=== PATIENT | female | born 2000 | race Caucasian/White ===

== ENCOUNTER 2021-04-27 17:03 | Outpatient (CLI) | payer OTHER, SELFPAY ==
--- NOTE | ~2021-04-27 | US_ITS ---
EXAMINATION: US soft tissue head and neck DATE: 04/27/2021 17:26 INDICATION: Localized lump posterior to the left ear since rn social services. TECHNIQUE: Multiple grayscale and Doppler ultrasound images of the region of concern posterior to the left ear were obtained. COMPARISON: None FINDINGS: The palpable abnormality of concern corresponds to a 2.7 x 1.9 x 0.9 cm complex cystic mass in the jj bcutaneous tissues. The lesion is centrally anechoic with a peripheral process 1 mm thick hypoechoic wall with irregular internal surface. There is a heterogeneously isoechoic region within the caudal a spect of the lesion. No evident internal vascular flow on color Doppler. IMPRESSION: 1. 2.7 x 1.9 x 0.9 cm complex cystic mass which given the provided history of a chronic lesion since rn social services favors a benign etiology with location suggesting possibly a first branchial cleft cy st. Differential would also include lymphangioma,, Warthin tumor, or parotid sialocele. Necrotic lymp h node, abscess or malignancy could appear similarly but would be discordant with the provided histor y. Consider further contrast enhanced CT of the neck for further evaluation. Reviewed, dictated and finalized at location A. STRATION OFFICER IMPRESSION: 1. 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 Differential would also include lymphangioma,, Warthin tumor, or parotid sialocele. Necrotic lymph node, absce ss or malignancy could appear similarly but would be discordant with the provid ed history. Consider further contrast enhanced CT of the neck for further evalu ation.
[2021-04-27 17:48] LABS: Hematocrit 41.2 % (37.0-47.0); Hemoglobin 14.1 g/dL (12.0-15.0); Mean Corpuscular HGB Conc 34.2 g/dl (32-36); Mean Corpuscular Hemoglobin 31.1 pg (26-34); Mean Corpuscular Volume 90.9 fl (80-100); Mean Platelet Volume 10.1 fl (7.4-10.4); Platelet Count Result 289 k/mm3 (150-375); Red Blood Count 4.53 M/mm3 (4.2-5.4); Red Cell Distribution Width 11.9 % (11.5-14.5); White Blood Count 11.4 K/mm3 (4.5-10.0)
[2021-04-27 18:00] LABS: Alanine Aminotransferase 10 U/L (4-35); Albumin Level 4.7 g/dL (3.5-5.1); Alkaline Phosphatase 71 U/L (38-126); Anion Gap 6 mmol/L (8-16); Aspartate Amino Transferase 16 U/L (14-36); Bilirubin,Total 0.3 mg/dL (0.2-1.3); Blood Urea Nitrogen 10 mg/dL (7-17); Calcium 9.3 mg/dL (8.4-10.2); Carbon Dioxide 30 mmol/L (22-30); Chloride 103 mmol/L (98-107); Estimated Glomerular Filt Rate > 60; Glucose 100 mg/dL (65-110); Potassium 4.3 mmol/L (3.4-5.0); Sodium 139 mmol/L (137-145)
[2021-04-29 21:52] LABS: ANA Cascade Screen Negative (Negative)
== END 2021-04-27 17:04 | disposition home or self-care (01) ==
LOC: ANHIMG 17:09
PROVIDERS: PCP Family Medicine; Visit Provider Family Medicine
DX: R22.0 Localized swelling, mass and lump, head (principal); R53.83 Other fatigue; F41.9 Anxiety disorder, unspecified; E66.3 Overweight
CPT/HCPCS: 36415; 76536; 80053; 84443; 85027; 86038

== ENCOUNTER 2021-05-20 15:40 | Outpatient (CLI) | payer OTHER, SELFPAY ==
--- NOTE | ~2021-05-20 | CT_ITS ---
EXAMINATION: CT soft tissue neck w con EXAM DATE: 05/20/2021 16:07 INDICATION: R22.1 - Localized swelling, mass and lump, neck. Lump behind left ear for 20 years. TECHNIQUE: Spiral CT of the neck was performed following intravenous injection of 75 mL Omnipaque 350 . Axial, coronal and sagittal images were reviewed. The dose-length product (DLP) for this examinat ion was 431.98 mGy-cm. The exposure was tailored according to patient size (auto mA exposure control ), and iterative reconstruction (ASIR) was used as additional dose reduction technique. There is no prior study for comparison. FINDINGS: There is a BB posterior to the left ear marking symptomatic region. There is a focal encaps ulated lipoma deep to this measuring 2 cm in diameter by 1 cm in thickness. The thyroid gland is unr emarkable. The submandibular and parotid glands are symmetric. There is no cervical lymphadenopat hy. The superior mediastinum is unremarkable. The airway is unremarkable. Parapharyngeal and p re-glottic fat planes are preserved. The opacified vasculature is patent. The orbits are unremark able. Visualized sinuses and mastoid air cells are well aerated. Lung apices are clear. There is cervical spondylosis. IMPRESSION: Small encapsulated lipoma. Reviewed, dictated and finalized at location A. D ASSOCIATE IMPRESSION: Small encapsulated lipoma.
== END 2021-05-20 15:41 | disposition home or self-care (01) ==
LOC: ANHIMG 15:45
PROVIDERS: PCP Family Medicine; Visit Provider Family Medicine
DX: R22.1 Localized swelling, mass and lump, neck (principal)
CPT/HCPCS: 70491; Q9967

== ENCOUNTER 2021-06-28 12:58 | Outpatient (CLI) | payer OTHER, SELFPAY ==
--- NOTE | ~2021-06-28 | US_ITS ---
EXAMINATION: US OB <= 14 weeks fetus DATE: 06/28/2021 13:57 INDICATION: Uncertain dates. TECHNIQUE: Real-time transabdominal pelvic ultrasound was performed. COMPARISON: None. FINDINGS: The uterus measures 10.0 x 7.5 x 5.7 cm. There is an intrauterine gestational sac. A yolk sac is iden tified. The crown rump length measures 1.9 cm, which correlates with an estimated gestational age of 8 weeks and 3 day(s) (+/-) 5 day(s). heart motion is identified measuring 163 beats per minute (bpm) by M-mode Doppler. The right ovary is not visualized. The left ovary measures 3.1 x 1.6 x 2.0 cm. There is no free fluid in the pelvis. IMPRESSION: 1. Single living intrauterine gestation with estimated date of delivery of 02/04/2022. Reviewed, dictated and finalized at location A. SEALING MACHINE OPERATOR IMPRESSION: 1. Single living intrauterine gestation with estimated date of delivery of 01/10.
== END 2021-06-28 12:59 | disposition home or self-care (01) ==
LOC: ANHIMG 13:00
PROVIDERS: PCP Family Medicine; Visit Provider Obstetrics & Gynecology
DX: Z36.9 Encounter for antenatal screening, unspecified (principal); Z3A.00 Weeks of gestation of pregnancy not specified
CPT/HCPCS: 76801

== ENCOUNTER 2021-07-21 09:42 | Outpatient (CLI) | payer OTHER, SELFPAY ==
[2021-07-21 20:17] LABS: Basophils Absolute Auto 0.1 K/mm3 (0.0-0.1); Basophils Percent Auto 0.5 % (0.2-1.2); Eosinophils Absolute Auto 0.1 K/mm3 (0-0.3); Hematocrit 40.2 % (37.0-47.0); Hemoglobin 13.4 g/dL (12.0-15.0); Immature Granulocyte Absolute 0.04 K/mm3 (0.00-0.031); Immature Granulocyte Percent A 0.4 % (0-0.5); Lymphocytes Absolute Auto 2.05 K/mm3 (0.9-3.2); Lymphocytes Percent Auto 21.2 % (18.3-44.2); Mean Corpuscular HGB Conc 33.3 g/dl (32-36); Mean Corpuscular Hemoglobin 31.3 pg (26-34); Mean Corpuscular Volume 93.9 fl (80-100); Mean Platelet Volume 10.7 fl (7.4-10.4); Monocytes Absolute Auto 0.6 K/mm3 (0.1-0.6); Monocytes Percent Auto 5.8 % (2.6-8.5); Neutrophils Absolute Auto 6.9 K/mm3 (1.3-6.7); Neutrophils Percent Auto 71.1 % (45.5-73.1); Platelet Count Result 266 k/mm3 (150-375); Red Blood Count 4.28 M/mm3 (4.2-5.4); Red Cell Distribution Width 12.3 % (11.5-14.5); White Blood Count 9.7 K/mm3 (4.5-10.0)
[2021-07-21 20:33] LABS: Add Urine Microscopic? YES; Amorphous Sediment Urine Few; Appearance Urine Cloudy (Clear); Bacteria Urine 2+ /hpf; Bilirubin Urine Negative (Negative); Blood Urine Negative (Negative); Color Urine Yellow (Yellow); Glucose Urine UA Negative (Negative); Ketones Urine Negative (Negative); Leukocyte Esterase Ur 1+ LEU/UL (NEGATIVE); Mucus Urine Rare /lpf; Nitrate Urine Positive (Negative); Protein Urine Negative (Negative); RBC Urine 0-2 /hpf (0-2); Specific Grav Ur 1.019 (1.001-1.035); Squamous Epithelial Cell Urine Many /hpf (Few); Urobilinogen Urine Negative mg/dL (<2.0)
[2021-07-21 21:00] LABS: HIV 1/2 Ab P24 Ag Result Negative (Negative)
[2021-07-21 21:37] LABS: Hepatitis B Surface Antigen Negative (Negative); Rubella IgG Antibody 28.7 IU/ML
[2021-07-21 21:43] LABS: Hepatitis C Virus Antibody Negative (Negative)
[2021-07-22 06:08] LABS: Rapid Plasma Reagin Non-Reactive (NonReactive)
[2021-07-26 14:02] LABS: Hematocrit 38.2 % (35.0-45.0); Hemoglobin 13.1 g/dL (11.7-15.5); MCH 31.7 pg (27.0-33.0); MCV 92.4 fL (80.0-100.0); RDW 12.6 % (11.0-15.0); Red Blood Cell Count 4.14 Mill/uL (3.80-5.10)
== END 2021-07-21 09:43 | disposition home or self-care (01) ==
LOC: ANHBWCLAB 09:45
PROVIDERS: PCP Family Medicine; Visit Provider Obstetrics & Gynecology
DX: Z34.91 Encounter for supervision of normal pregnancy, unspecified, first trimester (principal); Z3A.12 12 weeks gestation of pregnancy
CPT/HCPCS: 36415; 81001; 83021; 84443; 85025; 86592; 86703; 86762; 86787; 86803; 86850; 86900; 86901; 87077; 87086; 87088; 87340; G0432

== ENCOUNTER 2021-09-14 15:48 | Outpatient (CLI) | payer OTHER, SELFPAY ==
--- NOTE | ~2021-09-14 | US_ITS ---
EXAMINATION: US OB /maternal detail EXAM DATE: 09/14/2021 17:10 INDICATION: anatomy. 2nd trimester. TECHNIQUE: Pelvic obstetrical transabdominal sonogram was performed by a technologist. There are mu ltiple grayscale and Doppler images available for interpretation. Comparison is made to prior examina tion from 06/28/2021. FINDINGS: There is a single fetus identified in variable presentation with a heart rate of 133 beats per minute. The placenta is located in the posterior position. There is no sonographic evidence of r etroplacental hemorrhage identified. There is subjectively expected amount of amniotic fluid. BIOMETRIC DATA: Biparietal diameter (BPD): 4.7 cm ----------------> 20 weeks 1 day. Head circumference (HC): 16.6 cm ----------------> 19 weeks 2 days. Abdominal circumference (AC): 14.9 cm ----------> 20 weeks 1 day. Femur length (FL): 3.5 cm --------------------------> 21 weeks 1 day. These measurements are concordant. HC/AC ratio is 1.12 (The 5th -- 95th percentile range is 1.07-1.25. Estimated weight is 356 g +/- 53 g. This is the 91st percentile when the currently reported cl inical gestation age 19 weeks 4 days, clinical estimated date of delivery (ESTEE-OPE) 02/04 is used. Fet al estimated gestational age based on measurements from this exam is 20 weeks 1 day, with an estimate d date of delivery (ESTEE-AUA) 01/31. ANATOMIC SURVEY: The following anatomy is identified and is sonographically normal in appearance: Cerebral ventricles Cavum septum pellucidum Cerebellum Cisterna magna Nuchal fold CTL-spine Four-chamber heart Diaphragm Stomach Kidneys Bladder Three-vessel cord Cord insertion Extremities Nose/lips The cardiac outflow tracts were suboptimally visualized. IMPRESSION: 1. Single fetus in variable presentation with heart rate 133 beats per minute. 2. Estimated weight of 356 grams, 91st percentile using the currently reported clinical gestat ion age of 19 weeks 4 days, ESTEE(OPE) 02/04. 3. Suboptimally visualized cardiac outflow tracts. Otherwise normal anatomic survey. Reviewed, dictated and finalized at location A. IMPRESSION: 1. Single fetus in variable presentation with heart rate 133 beats per minute. 2. Estimated weight of 356 grams, 91st percentile using the currently re ported clinical gestation age of 19 weeks 4 days, ESTEE(OPE) 02/04. 3. Suboptimally visualized cardiac outflow tracts. Otherwise normal anatomic s urvey.
== END 2021-09-14 15:49 | disposition home or self-care (01) ==
PROVIDERS: PCP Family Medicine; Visit Provider Obstetrics & Gynecology
DX: Z36.3 Encounter for antenatal screening for malformations (principal); Z3A.19 19 weeks gestation of pregnancy
CPT/HCPCS: 76805

== ENCOUNTER 2022-01-14 12:38 | Outpatient (RCR) | payer OTHER, SELFPAY ==
[2022-01-14 13:16] VITALS: BP 131/79; PULSE 81
== END 2022-03-08 10:06 | disposition home or self-care (01) ==
LOC: ANHOBOP 12:38
PROVIDERS: PCP Family Medicine; Visit Provider Student in an Organized Health Care Education/Training Program
DX: O26.893 Other specified pregnancy related conditions, third trimester (principal); R03.0 Elevated blood-pressure reading, without diagnosis of hypertension; Z3A.00 Weeks of gestation of pregnancy not specified
CPT/HCPCS: 59025

== ENCOUNTER 2022-01-31 07:45 | Inpatient (IN) | payer OTHER, SELFPAY ==
--- NOTE | 2022-01-30 11:42 | WPDANESEPPF ---
Anes - Initial Pre Proc Eval Procedure: Operation Date: 01/31/22 10:30 Proposed Procedures p Primary Section - Micki Esparza MD <Brooks Loja MD - Last Filed: 01/31/22 11:36> Date/Time: 01/30/22 11:42 <Brooks Loja MD - Last Filed: 01/31/22 11:36> Surgeon: Micki Esparza MD <Brooks Loja MD - Last Filed: 01/31/22 11:36> Pre Op Diagnosis: VERSION/C/S OR IOL <Brooks Loja MD - Last Filed: 01/31/22 11:36> Patient Data Age: 21 Gender: F Height: Weight: <Brooks Loja MD - Last Filed: 01/31/22 11:36> Allergies Allergy/AdvReac Type Severity Reaction Status Date / Time No Known Allergies Allergy Verified 01/26/22 14:50 <Brooks Loja MD - Last Filed: 01/31/22 11:36> Home Medications Medication Instructions Recorded Confirmed Type docosahexaenoic acid 200 mg mg PO 06/22/21 01/03/22 History capsule ( DHA) cholecalciferol (vitamin D3) 50 50 mcg PO DAILY 12/06/21 01/03/22 History mcg (2,000 unit) capsule <Brooks Loja MD - Last Filed: 01/31/22 11:36> Patient hx anesthesia problems: none <Daniella Goode CRNA - Last Filed: 01/31/22 11:23> Family hx anesthesia problems: none <Daniella Goode CRNA - Last Filed: 01/31/22 11:23> Results Review: All pre-operative results and documents have been reviewed as part of the pre-operative evaluation. <Brooks Loja MD - Last Filed: 01/31/22 11:36> PMFSH Past Medical History Medical History: Medical History Acute pneumothorax Chlamydia 2013 and 2016 <Brooks Loja MD - Last Filed: 01/31/22 11:36> Family History Family History: Family History Mother Cerebrovascular accident Cervical cancer Brain tumor Grandparent Diabetes mellitus Polycythemia vera Grandparent Chronic obstructive pulmonary disease Stomach cancer Grandparent Cancer Lung cancer <Brooks Loja MD - Last Filed: 01/31/22 11:36> Social History Social History: Social History Smoking status: Never smoker Second hand tobacco smoke exposure: No Alcohol intake: current Drinks per week: 4 Substance use: current Substance use type: marijuana Spiritual care concerns: No <Brooks Loja MD - Last Filed: 01/31/22 11:36> Anes - Eval Final PreProcedure Day of Procedure 01/30/22 11:42 <Brooks Loja MD - Last Filed: 01/31/22 11:36> Patient weight: overweight <Brooks Loja MD - Last Filed: 01/31/22 11:36> Heart: regular rate and rhythm <Brooks Loja MD - Last Filed: 01/31/22 11:36> Lungs: clear to auscultation and normal air movement <Brooks Loja MD - Last Filed: 01/31/22 11:36> Airway: Mallampati scale class II <Brooks Loja MD - Last Filed: 01/31/22 11:36> Neurological: alert and oriented <Brooks Loja MD - Last Filed: 01/31/22 11:36> Last oral intake: >/= 8 hours <Brooks Loja MD - Last Filed: 01/31/22 11:36> ASA classification: II <Brooks Loja MD - Last Filed: 01/31/22 11:36> Emergent: no <Brooks Loja MD - Last Filed: 01/31/22 11:36> Anesthetic plan: proceed <Brooks Loja MD - Last Filed: 01/31/22 11:36> Anesthesia type and monitoring: regional spinal <Brooks Loja MD - Last Filed: 01/31/22 11:36> Results Review: All pre-operative results and documents have been reviewed as part of the pre-operative evaluation. <Brooks Loja MD - Last Filed: 01/31/22 11:36> Informed Consent: The patient's anesthetic plan and its attendant risks and benefits were discussed with the patient/family/POA. Questions were solicited and answers provided to the satisfaction of the patient/family/POA. <Brooks Loja MD - Last Filed: 01/31
[2022-01-31] VITALS (113 sets, daily range): BP systolic 100–180; BP diastolic 64–98; PULSE 68–126; RESP 16–22; TEMP 36.4–36.8; O2SAT 95–100; BMI 33.7
[2022-01-31 08:18] LABS: Hematocrit 41.4 % (37.0-47.0); Hemoglobin 14.3 g/dL (12.0-15.0); Mean Corpuscular HGB Conc 34.5 g/dl (32-36); Mean Corpuscular Hemoglobin 31.8 pg (26-34); Mean Corpuscular Volume 92.2 fl (80-100); Mean Platelet Volume 11.3 fl (7.4-10.4); Platelet Count Result 212 k/mm3 (150-375); Red Blood Count 4.49 M/mm3 (4.2-5.4); Red Cell Distribution Width 13.4 % (11.5-14.5)
[2022-01-31] MEDS: LACTATED RINGERS 1,000 ML 999 ML IV CONT (08:25)
--- NOTE | 2022-01-31 08:29 | LDADM ---
This patient, Supriya Shaikh, was admitted to Labor/Delivery/Recovery 120 on 01/31/22 at 07:45. Plans for labor, pain management and were discussed with patient. Patient/family oriented to hospital policies and general routines including ID bracelet, bed and alarms, visiting hours, pain management, procedures, bathroom and other care routines, personal items, smoking policy, room service/diet and guest tray routines, security routines, and visiting hours. Patient/Family are encouraged to report perceived risks to care and to ask questions if they do not understand what they are told or what they should do. See OBIX for further documentation.
--- NOTE | 2022-01-31 08:33 | PM.IMHP ---
H&P: HPI History of Present Illness Date/Time: 01/31/22 08:33 Chief Complaint: IUP at 39w2d Breech presentation Narrative: Patient is a 21yo LMP 05/01/21 currently 39w2d gestation with ESTEE 10/08/21 who presents to L&D for an external cephalic version (ECV). Patient is dated by LMP consistent with US on 06/28/21 at 8w gestation. Patient doing well today. Reports occasional contractions. Denies any vaginal bleeding or leakage of fluid. Reports good movement. Fetus in breech presentation. Patient was previously counseled about ECV vs. primary section. Patient would like to attempt an ECV today. If successful, will proceed with induction of labor. If unsuccessful, will proceed with section. Review of Systems Review of Systems: All systems reviewed & are unremarkable except as noted in HPI and below Constitutional: Constitutional: Reports as per HPI and Reports no additional constitutional complaints Eyes: Eyes: Reports as per HPI and Reports no additional eye complaints Cardiovascular: Cardiovascular: Reports as per HPI and Reports no additional cardiovascular complaints Respiratory: Respiratory: Reports as per HPI and Reports no additional respiratory complaints Gastrointestinal: Gastrointestinal: Reports as per HPI and Reports no additional gastrointestinal complaints Genitourinary: Genitourinary: Reports no additional female genitourinary complaints and Reports as per HPI Musculoskeletal: Musculoskeletal: Reports no additional musculoskeletal complaints and Reports as per HPI Integumentary/Breasts: Skin/Breast: Reports system reviewed and no additional complaints, except as docu and Reports as per HPI Neurologic: Reports system reviewed and no additional complaints, except as documented and Reports as per HPI Psychiatric: Psychiatric: Reports no additional psychiatric complaints and Reports as per HPI Endocrine: Endocrine: Reports no additional endocrine complaints and Reports as per HPI Hematologic/Lymphatic: Hematologic/Lymphatic: Reports no additional hematologic/lymphatic complaints and Reports as per HPI Allergic/Immunologic: Allergic/Immunologic: Reports no additional allergic/immunologic complaints and Reports as per HPI PMF Past Medical History Medical History Acute pneumothorax Chlamydia 2013 and 2017 Family History Family History Mother Cerebrovascular accident Cervical cancer Brain tumor Grandparent Diabetes mellitus Polycythemia vera Grandparent Chronic obstructive pulmonary disease Stomach cancer Grandparent Cancer Lung cancer Social History Social History Smoking status: Never smoker Second hand tobacco smoke exposure: No Alcohol intake: current Drinks per week: 4 Substance use: current Substance use type: marijuana Spiritual care concerns: No Meds Home Medications and Allergies Home Medications Medication Instructions Recorded Confirmed Type docosahexaenoic acid 200 mg mg PO 06/22/21 01/03/22 History capsule ( DHA) cholecalciferol (vitamin D3) 50 50 mcg PO DAILY 12/06/21 01/03/22 History mcg (2,000 unit) capsule Allergies Allergy/AdvReac Type Severity Reaction Status Date / Time No Known Allergies Allergy Verified 01/26/22 14:50 Exam Const: General: cooperative, healthy appearing, comfortable and no acute distress HENMT: Head: normal to inspection Ears: hearing grossly normal bilaterally Eyes: General: appearance normal, both eyes and all related structures Neck: Neck: normal visual inspection Thyroid: thyroid normal Resp: Effort & Inspection: normal respiratory effort Auscultation: clear to auscultation bilaterally Cardio: Rate: regular rate Rhythm: regular rhythm GI: Inspection: non-distended GI Palp: Yes Soft to palpation and N
--- NOTE | 2022-01-31 09:09 | WPDHPUPDATE1 ---
History and Physical Update Update Date/Time: 01/31/22 09:09 History and Physical has been reviewed, including an updated exam of the patient. There are NO changes in the patient's condition. Risks, benefits, and alternatives have been discussed and questions answered. Patient agrees to proceed with procedure.
[2022-01-31] MEDS: TERBUTALINE SULFATE 1 MG/ML VIAL 0.25 MG SUB-Q (09:45)
--- NOTE | 2022-01-31 10:03 | W.PM.PROC2 ---
Procedure Note - Detailed Date of Procedure 01/31/22 Pre-op Diagnosis IUP at 39w2d Breech presentation Post-op Diagnosis Same Procedure Performed External cephalic version Surgeon Micki Esparza MD Anesthesia Epidural Description of Procedure 21yo currently 39w2d gestation presented for attempted external cephalic version. FHR tracing reactive prior to procedure. IV access established. An epidural was placed by anesthesia. Limited bedside U/S performed confirming right sacrolateral breech presentation. Terbutaline x 1 dose administered. External cephalic version attempted with steady pressure keeping head flexed in a backwards roll under ultrasound guidance. Fetus rotated approximately 90 degrees, however, would not continue beyond approximately 90 degrees. First heart check a few minutes into procedure was reassuring. During the second heart check, decelerations to the 90s were noted. FHR recovered, however, decision was made to terminate procedure and proceed with section. Estimated Blood Loss 0 IV Fluids 0 Urine Output 0 Complications No immediate complications Condition Stable Disposition Floor [facility] Billing Surgery - Charge Forward: Surgery Billing
--- NOTE | 2022-01-31 10:10 | W.PM.PROC2 ---
Procedure Note - Detailed Date of Procedure 01/31/22 Pre-op Diagnosis Intrauterine at 39w2d gestation Breech presentation Unsuccessful external cephalic version Post-op Diagnosis Same Procedure Performed Primary low transverse section via Pfannenstiel Surgeon Micki Esparza MD Rounder Hand Randi Wright Anesthesia Epidural Findings Live female in footling breech presentation, apgars 9/9, weighing 6 lbs. 3 oz; clear amniotic fluid; normal appearing uterus, ovaries, and fallopian tubes bilaterally Description of Procedure The patient was taken to the operating room, where she was transferred to the operating room table. The patient was placed in dorsal supine position with a leftward tilt. She was prepped and draped in the usual sterile fashion. Epidural anesthesia was tested and found to be adequate. A Pfannenstiel skin incision was made with a scalpel and carried through to underlying layer of fascia with the Bovie. The fascia was incised in the midline and the incision was extended laterally with the use of forceps and Jurado scissors. The inferior aspect of the fascial incision was grasped with Lis clamps, elevated, and the underlying rectus muscle were dissected off with Jurado scissors. Attention was then turned to the superior aspect of the fascial incision, which in a similar manner, was grasped with Lis clamps, elevated, and the underlying rectus muscles were also dissected off with Jurado scissors. The rectus muscles were in the midline and the peritoneal cavity was entered bluntly. This incision was extended superiorly and inferiorly with good visualization of the bladder and care was taken to avoid blood vessels. A bladder blade was inserted. The vesicouterine peritoneum was identified and incised sharply with Metzenbaum scissors. This incision was extended laterally with Metzenbaum scissors and a bladder flap was created digitally. The bladder blade was replaced. A low-transverse uterine incision was made with a scalpel. This incision was extended laterally with bandage scissors. Amniotomy was performed. Clear amniotic fluid was noted. The was noted to be in double footling breech presentation. Infant's feet were grasped and gently guided through the uterine incision. was guided to level of sacral crests. Infant was rotated to sacral anterior position. was grasped with a sterile towel and guided through incision to level of scapulae. The infant was rotated to the right and the left upper extremity was flexed and delivered. Similarly, was rotated to the left and the right upper extremity was flexed and delivered. The infant's head was then grasped, flexed, and easily delivered atraumatically and without difficulty. The infant's nose and mouth were suctioned with bulb suction. The infant was crying spontaneously. The cord was clamped and cut and the infant was handed off to awaiting nursing staff. A segment of cord was collected for cord gases. Cord blood was also collected. The placenta was then delivered manually with gentle uterine massage. Uterus was exteriorized and cleared of all clots and debris. The uterine incision was reapproximated with 0 Vicryl in a running, locked fashion. A second imbricating layer using 0 Monocryl performed. An area in the midline of the incision was noted to be oozing. This area was made hemostatic with 0 Vicryl. Excellent hemostasis was noted. On inspection, the uterus, ovaries, and fallopian tubes appeared to be normal bilaterally. The uterus was replaced into the abdominal cavity. The gutters were cleared of all clots and debris. The uterine incision was inspected again and noted to be hemostatic. Hemaderm was applied across the uterine incision. Interceed was also applied across the uterine incision and anterior surface of the uterus. The peritoneum was reapproximated with 2-0 Monocryl. The fascia was then closed with 0 Vicryl in a running fashion. The subcutaneous layer
[2022-01-31] MEDS: ceFAZolin 2 GM/D5W 50 ML 2 GM/50 ML BAG IVPB (10:42)
[2022-01-31 10:44] LABS: Barbiturate Screen Urine Negative (Negative); Benzodiazepines Screen Urine Negative (Negative)
[2022-01-31 10:45] LABS: Alanine Aminotransferase 13 U/L (6-35); Albumin Level 3.6 g/dL (3.5-5.1); Alkaline Phosphatase 131 U/L (38-126); Anion Gap 8 mmol/L (8-16); Aspartate Amino Transferase 18 U/L (14-36); Bilirubin,Total 0.3 mg/dL (0.2-1.3); Blood Urea Nitrogen 7 mg/dL (7-17); Calcium 8.4 mg/dL (8.4-10.2); Carbon Dioxide 24 mmol/L (22-30); Chloride 104 mmol/L (98-107); Estimated CRCL calculation 125 ml/min; Estimated Glomerular Filt Rate > 60; Glucose 91 mg/dL (65-110); Potassium 3.6 mmol/L (3.4-5.0); Sodium 136 mmol/L (137-145); Uric Acid 6.1 mg/dL (2.5-7.5)
[2022-01-31 10:48] LABS: Amphetamine Screen Urine Negative (Negative); Cannabinoid Screen Urine Negative (Negative); Cocaine Screen Urine Negative (Negative); Methadone Screen Urine Negative (Negative); Phencyclidine Screen Urine Negative (Negative)
[2022-01-31 10:55] LABS: Opiate Screen Urine Negative (Negative)
[2022-01-31] MEDS: OXYTOCIN 30 UNITS/NS 500 ML 30 UNITS/500 ML BAG 125 UNITS IV CONT (12:04)
--- NOTE | 2022-01-31 12:13 | P.PCNOB_ITS ---
OB - Delivery Note Procedure Delivery date: 01/31/22 Procedure: Procedures Operation Date: 01/31/22 10:30 Actual Procedure Side Surgeon p Section Micki Esparza MD Events: Breech Presentation Delivery monitor: External FHT and External Uterine Route of delivery: Prior to decision for section, [facility] labor guidelines were considered and discussed with the patient and staff. Decision made to proceed with the section.: Yes Specimen: Yes (cord blood and cord gases) Quantitative Blood Loss (ml): 385 Anesthesia type: Epidural Disposition: PACU Complications: No immediate complications [place] Baby Date of : 01/31/22 Time of : 11:06 Weeks of gestation at delivery: 39 (39.2) Infant gender: Female Weight (pounds): 6 Weight (ounces): 3 presentation: breech Placenta delivery description: Manual Removal Cord Vessel Description: 3 Vessels score one minute: 9 score five minutes: 9 [facility] Delivery Billing Delivery Delivery: Delivery Charge
[2022-01-31] MEDS: CARBOPROST TROMETHAMINE 250 MCG/ML AMPUL IM (12:29)
[2022-01-31] MEDS: MORPHINE SULFATE INJ (*CRX) 10 MG/ML AMP 2 MG IV PUSH ×2 (13:10→13:43)
--- NOTE | 2022-01-31 14:15 | PC.NURSE ---
Patient transferred to post room #282 via stretcher. Support person present. Oriented to unit, room, information board, rooming in, admission packet and security measures. Patient verbalizes understanding.
[2022-01-31] MEDS: IBUPROFEN 600 MG TABLET PO ×2 (15:56→22:40)
[2022-01-31] MEDS: DEXTROSE 5%/0.45% SOD CHL 1,000 ML 125 ML IV CONT (15:58)
[2022-01-31] MEDS: HYDROcodone/acetaminophen (*CRX) 5-325 MG TABLET 1 TAB PO ×2 (15:58→22:40)
[2022-02-01 05:26] LABS: Basophils Percent Auto 0.2 % (0.2-1.2); Eosinophils Percent Auto 0.1 % (0-4.4); Hematocrit 35.2 % (37.0-47.0); Hemoglobin 11.7 g/dL (12.0-15.0); Immature Granulocyte Absolute 0.11 K/mm3 (0.00-0.031); Immature Granulocyte Percent A 0.7 % (0-0.5); Lymphocytes Absolute Auto 2.18 K/mm3 (0.9-3.2); Lymphocytes Percent Auto 14.6 % (18.3-44.2); Mean Corpuscular HGB Conc 33.2 g/dl (32-36); Mean Corpuscular Hemoglobin 31.6 pg (26-34); Mean Corpuscular Volume 95.1 fl (80-100); Mean Platelet Volume 11.1 fl (7.4-10.4); Monocytes Absolute Auto 0.7 K/mm3 (0.1-0.6); Monocytes Percent Auto 4.4 % (2.6-8.5); Neutrophils Absolute Auto 11.9 K/mm3 (1.3-6.7); Platelet Count Result 167 k/mm3 (150-375); Red Cell Distribution Width 13.7 % (11.5-14.5); White Blood Count 14.9 K/mm3 (4.5-10.0)
[2022-02-01 07:42] LABS: Rapid Plasma Reagin Non-Reactive (NonReactive)
[2022-02-01 08:20] VITALS: BP 129/78; PULSE 76; RESP 18; TEMP 36.9; O2SAT 100
[2022-02-01] MEDS: DOCUSATE SODIUM 100 MG CAPSULE PO ×2 (08:31→14:51)
[2022-02-01] MEDS: IBUPROFEN 600 MG TABLET PO ×3 (08:31→19:37)
[2022-02-01] MEDS: MULTIVIT/MIN/PREN/FOL AC/IRON TABLET 1 TAB PO (08:31)
[2022-02-01] MEDS: HYDROcodone/acetaminophen (*CRX) 5-325 MG TABLET 1 TAB PO ×3 (08:32→19:37)
--- NOTE | 2022-02-01 08:36 | WPDANLDNPN2 ---
Anes-Prog Note L&D-Neuraxial Date/Time: 02/01/22 08:36 Neuraxial medications: intrathecal PF morphine Opiod-related complaints: none Patient feedback: Patient satisfied with post-operative pain management.
--- NOTE | 2022-02-01 08:36 | WPDANLDPN2 ---
Anes-Prog Note L&D Date/Time: 02/01/22 08:36 Comfortable throughout: section Neuraxial method: spinal Epidural/Spinal procedure site: clean & non-tender Neuro status: Neuro function grossly intact. Cardiovascular status: normal Respiratory status: normal Airway patency: baseline Mental status: baseline Post-Op hydration status: normal Vital Signs: Last Vital Signs Temp 36.6 C 01/31/22 22:00 Pulse 68 01/31/22 22:00 Resp 16 01/31/22 22:00 BP 131/86 01/31/22 22:00 Pulse Ox 100 01/31/22 14:35 O2 Del Method Room Air 01/31/22 13:55 Pain score (VAS): 3 I/O: Intake & Output 01/31/22 02/01/22 02/01/22 23:59 07:59 15:59 Intake Total 860 1000 Output Total 3000 2000 Balance -2140 -1000 Patient feedback: Patient satisfied with anesthetic care.
--- NOTE | 2022-02-01 12:05 | P.PNOB_ITS ---
OB - PN: Subj Subjective Date/time seen: 02/01/22 08:05 Patient doing well. Minimal lower abdominal pain. Well c ontrolled with medication. Denies any headache, chest pain, SOB, N/V. Has not yet eaten. Kuhn recently removed. Has not yet voided. Limited ambulation. No flatus. Minimal-moderate lochia. OB - PN: Obj Data Labs CBC & Chem 7: 02/01/22 05:00 01/31/22 10:23 Labs: Laboratory Results - last 24 hr 01/31/22 02/01/22 08:12 05:00 WBC 14.9 H RBC 3.70 L Hgb 11.7 L Hct 35.2 L MCV 95.1 MCH 31.6 MCHC 33.2 RDW 13.7 Plt Count 167 MPV 11.1 H Immature Gran % (Auto) 0.7 H Neut % (Auto) 80.0 H Lymph % (Auto) 14.6 L [place] % (Auto) 4.4 Eos % (Auto) 0.1 Baso % (Auto) 0.2 Lymph # (Auto) 2.18 [place] # (Auto) 0.7 H Eos # (Auto) 0.0 Baso # (Auto) 0.0 Abs Immat Gran (auto) 0.11 H Absolute Neuts (auto) 11.9 H Absolute Nucleated RBC 0.0 Nucleated RBC % 0.0 RPR Non-reactive OB - PN A/P Assessment and Plan (1) Delivery by section for breech presentation: Code(s): O32.1XX0 - Maternal care for breech presentation, not applicable or unspecified Status: Acute Assessment and Plan: POD#1 doing well continue routine postoperative care encourage ambulation and use of IS Time Spent With Patient Time: Total time spent is greater than 50% in coordination of care (as documented) at patient's floor/unit and/or counseling patient: Review of Systems Review of Systems: All systems reviewed & are unremarkable except as noted in HPI and below Exam Const: General: cooperative, healthy appearing, comfortable and no acute distress GI: Inspection: non-distended GI Palp: Yes Soft to palpation and No Tenderness to palpation present (GI) Other: fundus firm below umbilicus inc covered with bandage, bandage c/d/i Extrem: Right lower extremity: no edema Left lower extremity: no edema Other: no calf tenderness
--- NOTE | 2022-02-01 14:35 | PC.NURSE ---
0810- Introductions were made, then consulted with patient to assess needs related to . Mother led the conversation with her?plans to feed?her infant and the?experience so far. Resources provided for inpatient and outpatient services using a resource guide and mom/baby guide. Mother voiced understanding of information and will call if there is a request for assistance. [phone] RN called to the room for assistance with . Mother led conversation with her experience with feeding baby so far and states she has used a nipple shield in the past. Mother works well with her infant with encouragement. Father and maternal grandmother of the infant are actively supportive. Reviewed working with infant, breast, nipples and how to protect the nipples with an optimal deep latch, good positioning, and good hand washing. Encouraged understanding the benefits of skin to skin, responding to feeding cues, frequencies of feeding 8-12 times in 24 hours (approximately 2-3 hours), duration of feedings, milk production, intake/output feeding sheet and signs of adequate intake encouraging swallowing at the breast. Reviewed positioning and alignment, supporting breast, off-centered (asymmetrical latch) and leading with the chin with big open wide gape. latched optimally to the left breast in football position. Education given to mother of how to visualize suck/swallow ratios and listen for drinking at the breast. was able to maintain latch without discomfort to mother without using a nipple shield. Nipple shield use, care, and purpose was discussed as a temporary tool to assist with latching. After working with the nipple shield on/off on the right breast infant did latch effectively to the right breast. Nipple care reviewed with optimal latch and good positioning. Reviewed to have clean hands when touching the nipple/breast with hand expression and . Resources used to facilitate learning were used from the tool and mom/baby guide. Parents voiced understanding of the education shared, calling for assistance if the does not latch or if there is discomfort with . Reported to the primary RN.
[2022-02-01 19:37] VITALS: BP 138/74; PULSE 84; RESP 16; TEMP 36.4
[2022-02-02] MEDS: HYDROcodone/acetaminophen (*CRX) 5-325 MG TABLET 1 TAB PO ×2 (04:37→10:13)
[2022-02-02] MEDS: IBUPROFEN 600 MG TABLET PO ×2 (04:38→10:12)
[2022-02-02 07:40] VITALS: BP 132/78; PULSE 82; RESP 18; TEMP 36.3; O2SAT 100
--- NOTE | 2022-02-02 10:05 | PM.OBPNVD ---
OB - PN: Subj Subjective Date/time seen: 02/02/22 10:05 Patient doing well. Pain well controlled with medication. Denies any headache, chest pain, shortness of breath, nausea, or vomiting. Tolerating p.o. diet. Ambulating without difficulty. Voiding well. Passing flatus. Minimal lochia. OB - PN: Obj Data Labs CBC & Chem 7: 02/01/22 05:00 01/31/22 10:23 OB - PN A/P Assessment and Plan (1) Delivery by section for breech presentation: Code(s): O32.1XX0 - Maternal care for breech presentation, not applicable or unspecified Status: Acute Assessment and Plan: POD#2 doing well continue routine postoperative care dc home today in stable condition emergency precautions reviewed f/u in office in 2 weeks for postoperative visit Time Spent With Patient Time: Total time spent is greater than 50% in coordination of care (as documented) at patient's floor/unit and/or counseling patient: Review of Systems Review of Systems: All systems reviewed & are unremarkable except as noted in HPI and below Exam Const: General: cooperative, healthy appearing, comfortable and no acute distress GI: Inspection: non-distended GI Palp: Yes Soft to palpation and No Tenderness to palpation present (GI) Other: fundus firm below umbilicus inc c/d/i Extrem: Right lower extremity: no edema Left lower extremity: no edema Other: no calf tenderness
--- NOTE | 2022-02-02 10:07 | PM.OBDSVD ---
DS: Admitting Diagnosis Discharge Date 02/02/22 Admitting Diagnosis IUP at 39w2d Breech presentation OB - DS: Summary OB Procedures : None OB Procedures Intrapartum: OB Procedures: : None Peripartum Data Procedures: Procedures Operation Date: 01/31/22 10:30 Actual Procedure Side Surgeon p Section Micki Esparza MD Time Spent with Patient Time attestation: Total time spent providing and/or coordinating discharge services: Discharge Plan Discharge Attending physician on discharge: Micki Esparza Discharging Clinician: Micki Esparza Anticipated Discharge Date/Time: 02/02/22 10:08 Patient Disposition: Home, Self-Care Activity: as tolerated and pelvic rest Diet: regular Discharge Instructions: Call office ([phone]) to schedule the following appointments: 1. Postoperative/wound check in 2 weeks. 2. visit in 4-6 weeks. You may take Ibuprofen 600mg every 6 hours as needed for pain. I have sent a prescription for a stronger pain medication, Chireno, to your pharmacy. You may take this as prescribed for breakthrough pain (pain that is not controlled with Ibuprofen). No driving for at least two weeks. You also may not drive while taking narcotics. Pain medication may make you constipated. It may be helpful to take an [id number] stool softener, such as Colace and/or Senokot, along with the pain medication to help lessen constipation. Call office or go to ED for pain not controlled with medication, headache, chest pain, shortness of breath, fever, chills, persistent nausea or vomiting, severe abdominal pain, heavy vaginal bleeding >2 pads/hour, foul vaginal discharge or odor, any redness near incision, severe pain, pus or drainage from incision site, or problems with your breasts. Patient Instructions: Antibiotic Form Stand Alone Forms: General Discharge Information Follow-up/Referrals: Micki Esparza MD [Physician] - Discharge Medications: New hydrocodone-acetaminophen 5-325 mg Tablet 1 - 2 tablet PO Q4-6H PRN (Reason: Moderate Pain (4-6)) Qty: 30 0RF Continued DHA 200 mg capsule PO Discontinued cholecalciferol (vitamin D3) 50 mcg (2,000 unit) capsule 50 mcg PO DAILY Date of admission: 01/31/22 07:45 Primary Care Provider: Josefina Holden Admitting Provider: Micki Esparza Attending physician on admission: Micki Esparza Condition: Stable
[2022-02-02] MEDS: MULTIVIT/MIN/PREN/FOL AC/IRON TABLET 1 TAB PO (10:12)
[2022-02-02] MEDS: DOCUSATE SODIUM 100 MG CAPSULE PO (10:13)
[2022-02-03 08:34] VITALS: BP 135/85; PULSE 81; RESP 20; TEMP 37.1; O2SAT 99
== END 2022-02-02 13:08 | disposition home or self-care (01) | DRG 540 ==
LOC: ANHLDR 07:51 → ANHOB2 14:29
PROVIDERS: Admitting Provider Student in an Organized Health Care Education/Training Program; PCP Family Medicine; Visit Provider Student in an Organized Health Care Education/Training Program
PROC: 10D00Z1 Extraction of Products of Conception, Low, Open Approach (ICD-10-PCS; CPT 59514; principal; 2022-01-31 10:30)
DX: O32.8XX0 Maternal care for other malpresentation of fetus, not applicable or unspecified (principal); Z3A.39 39 weeks gestation of pregnancy; Z37.0 Single live birth
CPT/HCPCS: 36415; 80053; 80307; 84550; 85025; 85027; 86592; 86850; 86900; 86901; A9270; J0131; J0690; J2270; J2274; J2405; J2590; J2795; J3105; J7120

== ENCOUNTER 2022-07-25 02:59 | Day surgery (SDC) | payer OTHER, SELFPAY ==
[2022-06-06 15:08] VITALS: BMI 28.0
--- NOTE | 2022-06-06 15:28 | PC.NURSE ---
Report to the Outpatient Waiting Room, entrance under the green pavilion located off [facility], at 0745 on 06-20-22. Planned Procedure Time: 0945. Time changes happen often and if your time is changed the preop area will call you the afternoon before. - You and your visitor will be asked to self-screen and do not enter if you have any COVID symptoms. - Only one visitor is requested with a max of two and NO children (Under age 16) visitors are allowed at this time. - The patient visitor may be requested to leave or wait in car when not with patient due to distancing restrictions. - A mask is required within the hospital. Patients may have clear liquids (water, carbonated beverages, clear teas, apple juice) until 3 hours prior to surgery with a maximum of 20 ounces. 0645 - No food from midnight until time of surgery - Infants may have breast milk until 4 hours before surgery, formula 6 hours prior to surgery. - Children will be allowed to drink immediately following surgery. If applicable, please bring a bottle or sippy cup to assist with drinking. Juice, water, soda, and popsicles are readily available. For infants on formula, please bring formula the day of surgery. Pacifiers are allowed. Take the following medications with a SIP of water the morning of surgery: None Medications to discontinue per physician: N/A Please no make-up, nail citizen of [place], hairspray, perfume, deodorant, or body powder the day of surgery. No jewelry (including any body piercings) or valuables the day of surgery, leave them at home. Please take a shower or bath the night before, or the morning of, surgery with an antibacterial soap. Wear comfortable, loose fitting clothing. Children are encouraged to wear pajamas. - Jewelry must be removed prior to entering the operating room. Rings and piercings that are not removed may be cut off. - The hospital will not accept responsibility for valuables. - Please leave all valuables, including medications, at home the day of surgery. If you are going home after surgery, a licensed compactor driver must drive you home. - NO public transportation without another adult if you receive anesthesia. - We recommend that an adult stay with you for 24 hours following discharge. - We also recommend that you do not drive, make important decision, drink alcoholic beverages, or take any drugs that were not prescribed by your health care provider for at least 24 hours after your discharge time. For Pediatric surgeries, we recommend two adults accompany the child home. Follow any additional instructions given to you from your surgeon. If you or anyone in your household have experienced Covid symptoms in the past week, please notify your surgeon or the nurse liaison at the phone number below for possible testing. Telephone instructions given to Supriya Sahikh and asked if any additional questions and then verbalized understanding. Patient advised to call surgeon office or pre surgery nurse liaison [phone] if any additional questions.
--- NOTE | 2022-07-13 08:59 | PC.NURSE ---
Report to the Outpatient Waiting Room, entrance under the green pavilion located off [facility], at time _0600_ on date _[id number]_. Planned Procedure Time: _0800_. Time changes happen often and if your time is changed the preop area will call you the afternoon before. - You and your visitor will be asked to self-screen and do not enter if you have any COVID symptoms. - Only one visitor is requested with a max of two and NO children visitors are allowed at this time. - The patient visitor may be requested to leave or wait in car when not with patient due to distancing restrictions. - A mask is optional within the hospital at this time. Patients may have clear liquids (water, carbonated beverages, clear teas, apple juice) until 3 hours prior to surgery with a maximum of 20 ounces. - No food from midnight until time of surgery Take the following medications with a SIP of water the morning of surgery: ___None DO NOT STOP ANY OF YOUR OTHER PRESCRIPTION MEDICATIONS PRIOR TO SURGERY ?EXCEPT THE FOLLOWING Medications to discontinue per physician __None Date to take last dose Please no make-up, nail chinese, hairspray, perfume, deodorant, or body powder the day of surgery. No jewelry (including any body piercings) or valuables the day of surgery, leave them at home. Please take a shower or bath the night before, or the morning of, surgery with an antibacterial soap. Wear comfortable, loose fitting clothing. - Jewelry must be removed prior to entering the operating room. Rings and piercings that are not removed may be cut off. - The hospital will not accept responsibility for valuables. - Please leave all valuables, including medications, at home the day of surgery. If you are going home after surgery, a licensed dolly driver must drive you home. - NO public transportation without another adult if you receive anesthesia. - We recommend that an adult stay with you for 24 hours following discharge. - We also recommend that you do not drive, make important decision, drink alcoholic beverages, or take any drugs that were not prescribed by your health care provider for at least 24 hours after your discharge time. Follow any additional instructions given to you from your surgeon. If you or anyone in your household have experienced Covid symptoms in the past week, please notify your surgeon or the nurse liaison at the phone number below for possible testing. Telephone instructions given to __Patient___and asked if any additional questions and then verbalized understanding. Patient advised to call surgeon office or pre surgery nurse liaison [phone] if any additional questions.
--- NOTE | 2022-07-24 15:44 | WPDANESEPPF ---
Anes - Initial Pre Proc Eval Procedure: Operation Date: 07/25/22 08:00 Proposed Procedures p Excision of Left Postauricular Mass - Tristin Jay MD Date/Time: 07/24/22 15:44 Surgeon: Tristin Jay MD Pre Op Diagnosis: Left Postauricular Mass Patient Data Age: 22 Gender: F Height: 1.68 m Weight: 78.93 kg Allergies Allergy/AdvReac Type Severity Reaction Status Date / Time No Known Allergies Allergy Verified 07/25/22 07:18 Home Medications Medication Instructions Recorded Confirmed Type adapalene 0.3 %-benzoyl peroxide See Rx Instructions .Route .COMPLEX 04/12/22 06/06/22 History 2.5 %-clindamycin 1 % topical gel drospirenone 3 mg-ethinyl 1 tablet PO DAILY #84 tabs 04/12/22 06/06/22 Rx estradiol 0.02 mg tablet doxycycline hyclate 100 mg capsule 100 mg PO BID 06/06/22 06/06/22 History Patient hx anesthesia problems: none Family hx anesthesia problems: none Results Review: All pre-operative results and documents have been reviewed as part of the pre-operative evaluation. [facility] Past Medical History Medical History Acute pneumothorax Chlamydia 2013 and 2016 Delivery by section for breech presentation Surgical History Surgical History H/O section Family History Family History Mother Cerebrovascular accident Cervical cancer Brain tumor Grandparent Diabetes mellitus Polycythemia vera Grandparent Chronic obstructive pulmonary disease Stomach cancer Grandparent Cancer Lung cancer Social History Social History Years smoked: 1 Smoking status: Current some day smoker Tobacco type: e-cigarettes/vaping Second hand tobacco smoke exposure: No Alcohol intake: current Drinks per week: 4 Alcohol use details: occasionally Substance use: current Substance use type: marijuana Lack of Transportation: No Lack of Food: Sometimes True Current Housing: I Have Housing Concerned About Future Housing: No Difficulty Paying Gas/Electric Bills: No Difficulty Paying for Meds: No Currently Unemployed: No Education: High School Diploma/GED Difficulty w/ Childcare or Family Care: No Living arrangements: other Additional living arrangements comments: lives with significant other Spiritual care concerns: No Anes - Eval Final PreProcedure Day of Procedure 07/24/22 15:44 Patient weight: overweight Heart: regular rate and rhythm Lungs: clear to auscultation and normal air movement Airway: Mallampati scale class II Neurological: alert and oriented Last oral intake: >/= 8 hours ASA classification: II Emergent: no Anesthetic plan: proceed Anesthesia type and monitoring: general ETT Results Review: All pre-operative results and documents have been reviewed as part of the pre-operative evaluation. Informed Consent: The patient's anesthetic plan and its attendant risks and benefits were discussed with the patient/family/POA. Questions were solicited and answers provided to the satisfaction of the patient/family/POA.
--- NOTE | 2022-07-24 18:08 | P.HP_ITS ---
H&P: HPI History of Present Illness Date/Time: 07/24/22 18:08 Chief Complaint: left postauricular mass Narrative: planned surgical procedure Review of Systems Review of Systems: All systems reviewed & are unremarkable except as noted in HPI and below [facility] Past Medical History Medical History Acute pneumothorax Chlamydia 2013 and 2016 Delivery by section for breech presentation Surgical History Surgical History H/O section Family History Family History Mother Cerebrovascular accident Cervical cancer Brain tumor Grandparent Diabetes mellitus Polycythemia vera Grandparent Chronic obstructive pulmonary disease Stomach cancer Grandparent Cancer Lung cancer Social History Social History Years smoked: 1 Smoking status: Current some day smoker Tobacco type: e-cigarettes/vaping Second hand tobacco smoke exposure: No Alcohol intake: current Drinks per week: 4 Alcohol use details: occasionally Substance use: current Substance use type: marijuana Lack of Transportation: No Lack of Food: Sometimes True Current Housing: I Have Housing Concerned About Future Housing: No Difficulty Paying Gas/Electric Bills: No Difficulty Paying for Meds: No Currently Unemployed: No Education: High School Diploma/GED Difficulty w/ Childcare or Family Care: No Living arrangements: other Additional living arrangements comments: lives with significant other Spiritual care concerns: No Meds Home Medications and Allergies Home Medications Medication Instructions Recorded Confirmed Type adapalene 0.3 %-benzoyl peroxide See Rx Instructions .Route .COMPLEX 04/12/22 06/06/22 History 2.5 %-clindamycin 1 % topical gel drospirenone 3 mg-ethinyl 1 tablet PO DAILY #84 tabs 04/12/22 06/06/22 Rx estradiol 0.02 mg tablet doxycycline hyclate 100 mg capsule 100 mg PO BID 06/06/22 06/06/22 History Allergies Allergy/AdvReac Type Severity Reaction Status Date / Time No Known Allergies Allergy Verified 06/06/22 15:01 Exam Narrative: left postauricular mass at least 5 cm across Assessment and Plan Assessment and plan (1) Posterior auricular lymphadenopathy: Code(s): R59.0 - Localized enlarged lymph nodes Status: Acute Assessment and Plan: plan OR for excision of the left postauricular mass risks were discussed including bleeding infection damage to surrounding structures change in cosmesis need for further procedures failure to resolve symptoms.? Patient voiced understanding and agreed.? Cyst is at least 5 cm across.? LMA okay. numbness to the region was discussed as well. Need to shave Scalp. Patient voiced understanding and agreed. (2) Mass of left ear auricle: Code(s): H93.8X2 - Other specified disorders of left ear Status: Acute
[2022-07-25] VITALS (7 sets, daily range): BP systolic 105–131; BP diastolic 64–83; PULSE 63–78; RESP 10–16; TEMP 36.7–37.2; O2SAT 99–100
[2022-07-25] MEDS: LACTATED RINGERS 1,000 ML 30 ML IV CONT ×2 (06:45→09:04)
--- NOTE | 2022-07-25 07:12 | WPDHPUPDATE1 ---
History and Physical Update Update Date/Time: 07/25/22 07:12 History and Physical has been reviewed, including an updated exam of the patient. There are NO changes in the patient's condition. Risks, benefits, and alternatives have been discussed and questions answered. Patient agrees to proceed with procedure.
[2022-07-25] MEDS: LIDO 1%/EPINEPHRINE 1:100,000 20 ML VIAL INFILTRATE (08:19)
--- NOTE | 2022-07-25 09:21 | W.PM.PROC2 ---
Procedure Note - Detailed Date of Procedure 07/25/22 Pre-op Diagnosis Left Postauricular Mass Post-op Diagnosis Same Procedure Performed Excision of left post auricular mass Surgeon Tristin Jay MD Anesthesia General Indications See above Findings 3-5cm cytic lesion, consistent with inclusion/epidermoid Description of Procedure Patient identified consent verified. Patient brought operating. Time-out performed. General anesthesia induced , LMA secured. Patient prepped reposition 2nd time-out performed. 0.5 cc 1% lidocaine 1000 parts epinephrine injected her pre drawn incision. Fifteen blade utilized gut to the skin as well as dermis. Blunt dissection carried around the cyst any bleeding was preemptively controlled with bipolar electrocautery at a setting 5 in 10. The superficial temporal blood vessels were avoided. The cyst was peeled off them. Blood loss was essentially 0 will see 2 cc. Wound copiously irrigated closed the very deep layer 3-0 interrupted Vicryl sh dermis closed with 4 interrupted 4-0 interrupted Vicryl sutures. Skin closed with glue. Great approximation. No swelling no complications. Care the patient given Anesthesiology I performed all dictated portions of procedure. Patient taken to PACU. Estimated Blood Loss -2.0 Drains No Packing No Pathology Yes Complications No immediate complications Condition Stable Disposition PACU [facility] Billing Surgery - Charge Forward: Surgery Billing
== END 2022-07-25 10:34 | disposition home or self-care (01) ==
PROVIDERS: PCP Family Medicine; Visit Provider Otolaryngology
PROC: (CPT 11443; principal; 2022-07-25 08:00)
DX: L72.0 Epidermal cyst (principal); R59.0 Localized enlarged lymph nodes; F17.290 Nicotine dependence, other tobacco product, uncomplicated; F12.90 Cannabis use, unspecified, uncomplicated
CPT/HCPCS: 11443; 12051; 88304; A9270; J1100; J2250; J2405; J2704; J3010; J7120

== ENCOUNTER 2023-01-29 09:41 | Outpatient (CLI) | payer OTHER, SELFPAY ==
--- NOTE | ~2023-01-29 | XR_ITS ---
EXAMINATION: XR hip LT 2V w AP pelvis INDICATION: Left hip pain TECHNIQUE: AP view the pelvis and two views of the left hip are obtained. COMPARISON: None available FINDINGS: There is mild irregularity of the left femoral head and joint space narrowing. There is no fracture. The soft tissues are unremarkable. IMPRESSION: 1. Mild left hip osteoarthritis. Reviewed, dictated and finalized at location A.
== END 2023-01-29 09:42 | disposition home or self-care (01) ==
PROVIDERS: PCP Family Medicine; Visit Provider Nurse Practitioner
DX: R40.20 Unspecified coma (principal); M16.12 Unilateral primary osteoarthritis, left hip
CPT/HCPCS: 73502

== ENCOUNTER 2023-02-26 13:34 | Outpatient (CLI) | payer OTHER, SELFPAY ==
[2023-02-26 20:32] LABS: Beta HCG Quantitative < 2.39 mIU/ML
== END 2023-02-26 13:35 | disposition home or self-care (01) ==
LOC: ANHGOSHLAB 13:35
PROVIDERS: PCP Family Medicine; Visit Provider Nurse Practitioner
DX: N92.6 Irregular menstruation, unspecified (principal)
CPT/HCPCS: 36415; 84702

== ENCOUNTER 2023-03-07 14:30 | Outpatient (RCR) | payer OTHER, SELFPAY ==
--- NOTE | 2023-02-07 12:58 | OPREHPOC ---
Outpatient Therapy Plan of Care This is a Multidisciplinary Plan of Care that may contain components documented by all disciplines (PT, OT, and ST.) PT Problem 1 PT Problem #1 Knowledge Deficit PT Goal 1 Goal Pt to be IND with issued HEP PT Problem 2 PT Problem #2 Pain PT Goal 1 Goal Pt to report hip pain no greater than 3/10 in the last week Target Visit 8 PT Goal 2 Goal Pt to report 75% improvement in overall symptoms PT Problem 3 PT Problem #3 Impaired Range of Motion PT Goal 1 Goal Pt to demonstrate equal L hip rotation ROM compared to R hip Target Visit 8 PT Problem 4 PT Problem #4 Impaired Strength PT Goal 1 Goal Pt to demonstrate L hip abduction strength grossly 4/5 Target Visit 8 PT Problem 5 PT Problem #5 Impaired Gait PT Goal 1 Goal Pt to ambulate without deviations. Target Visit 8
--- NOTE | 2023-02-07 12:58 | PTOPEVAL1 ---
Assessment and note entered by Lovely Zuñiga, PT, DPT Evaluation Information Assessment Status Evaluation Diagnosis L hip pain Onset chronic Subjective Information Pt states years ago she remembers having to limp d /t the pain and she never got it checked out. She states she just got imaging which shows mild hip OA. She states she can get her hip to pop and this relives the pain temporarily. She states she has pain almost daily, has noticed decreased ROM, and thinks one leg may be longer than the other. Pt reports it also hurts to lay on her L side. She states she gets intermittent knee pain. Pt likes to go on walks, play tennis, or workout. Reported Pain Level Pain Score 3: Self Report Assessment PT Clinical Summary Supriay presents to therapy today for her initial evaluation with a diagnosis of L hip pain. Today she demonstrates asymmetrical positioning in supine, increased arnoldo calcaneal valgus, and L hip ROM and strength compared to her R hip. She ambulates with a shortened stride and with excessive pelvic motion. Skilled therapy services are indicated to address the deficits noted above, to manage pain, and to limit functional impairments. Plan of Care Interventions Electrical Stimulation,Gait Training,Hot Pack/Cold Pack,Manual Therapy,Neuro Re-education,Patient/ Caregiver Educati,Therapeutic Activities, Therapeutic Exercise PT Services Indicated Yes Treatment Frequency and 2x/wk for 8 visits Duration These treatments will address the objective and functional deficits as defined above. The patient will be advanced safely and appropriately in order for the patient to progress towards his/her prior level of function. Additional exercises will be introduced and as well as a comprehensive home exercise program upon discharge, if needed, ?to ensure carryover of functional gains achieved in the clinic. This treatment plan has been reviewed and agreement upon by the patient.
--- NOTE | 2023-02-22 08:29 | PCPTNOTE ---
Patient called to cancel this date due to not having childcare for her daughter.
--- NOTE | 2023-03-07 15:16 | PTOPDC ---
Assessment and note entered by Lovely Zuñiga, PT, DPT Evaluation Information Assessment Status Discharge Diagnosis L hip pain Onset chronic Subjective Information Pt states at first her hip used to hurt 100% of the time. She states now she does not have any trouble sleeping, but states she will still continue to have mild pain throughout the day if she has been sitting for too long. Pt states she can sit most of the day without an increase in pain. She continues to report it as a 7/10 at the worst in the last week. She reports intermittent compliance with her HEP. Reported Pain Level Pain Score 2: Self Report Assessment PT Clinical Summary Supriya presents to therapy today for her progress report following 5 visits of skilled therapy to treat her with a diagnosis of L hip pain. Today she demonstrates progressing hip strength and ROM but still decreased from her R side. She reports she is progressing well and would like to be discharged from therapy at this time. If she needs additional therapy at a later date she will need a new order Plan of Care PT Services Indicated Yes
== END 2023-03-08 08:57 | disposition home or self-care (01) ==
LOC: ANHGOSHPT 14:30
PROVIDERS: PCP Family Medicine; Visit Provider Nurse Practitioner
DX: M25.552 Pain in left hip (principal)
CPT/HCPCS: 97110; 97112; 97161; 97530

== ENCOUNTER 2023-09-20 17:01 | Outpatient (CLI) | payer OTHER, SELFPAY ==
--- NOTE | ~2023-09-20 | MR_ITS ---
EXAMINATION: MR brain/brain stem wo con DATE: 09/20/2023 18:44 CDT INDICATION: Visual disturbances. TECHNIQUE: Magnetic resonance imaging (MRI) of the brain and brainstem was performed without and with 15 cc MultiHance intravenous contrast. Sequences included sagittal and axial T1-weighted SE, axial d iffusion-weighted FS SE, axial T2*-weighted GRE, axial T2-weighted FLAIR Propeller, and axial T2-weig hted Propeller. Apparent diffusion coefficient (ADC) maps were created. COMPARISON: No prior studies for comparison. FINDINGS: The brain volume and ventricular system are within normal limits. The brain parenchymal si gnal intensity pattern and john/white matter is normal and there is no evidence of hemorrhage, space occupying masses or infarctions. The flow signal voids of the major arterial structures about the [place] and within the collin r dural venous sinuses appear grossly unremarkable and patent. The seventh and eighth cranial nerve complexes are normal. The mid sagittal image demonstrates a normal craniovertebral junction and franck us callosum. The paranasal sinuses are grossly unremarkable. No abnormal contrast enhancement was appreciated. IMPRESSION: 1: Unremarkable MRI of the brain. Reviewed, dictated and finalized at location A.
== END 2023-09-20 17:02 | disposition home or self-care (01) ==
LOC: ANHIMG 17:02
PROVIDERS: PCP Family Medicine; Visit Provider Student in an Organized Health Care Education/Training Program
DX: R40.20 Unspecified coma (principal)
CPT/HCPCS: 70551; A9577

== ENCOUNTER 2023-12-31 08:57 | Outpatient (CLI) | payer OTHER, SELFPAY ==
--- NOTE | 2024-01-01 09:04 | WPDNEUROLOGY ---
Neurology EEG Report General Information Date of Study: 12/31/23 TEST eeg DIAGNOSIS Near syncope CONDITION OF RECORDING awake drowsy and asleep. EEG NUMBER [id number] CLINICAL HISTORY Patient states several years ago she had a few episodes of dizziness, nausea and the feeling like she was going to pass out. Denies any loss of consciousness though. EEG DESCRIPTION Basic resting occipital frequency consists of low to medium voltage 11 to 13 hertz per 2nd alpha admixed with low-voltage 15 to 18 hertz per 2nd beta. Posterior activity symmetrical he blocked with opening of the eyes. Low-voltage beta activity seen diffusely admixed with waxing and waning posterior alpha rhythm during drowsiness. Bilateral symmetrical admixture of low-voltage beta theta and Alpha activity seen during initial phase of the sleep. Bilateral symmetrical sleep spindles were seen during deeper stages of sleep. Photic stimulation produced non were drive. Hyperventilation produced normal and symmetrical buildup. Non paroxysmal. Nonfocal. Nonlateralizing. IMPRESSION Normal record during wakefulness, drowsiness, and sleep. Clinical correlation recommended the EEG can be normal even if the patient has ongoing history of seizures.
== END 2023-12-31 08:58 | disposition home or self-care (01) ==
LOC: ANHNEURO 08:58
PROVIDERS: PCP Family Medicine; Visit Provider Student in an Organized Health Care Education/Training Program
DX: R40.20 Unspecified coma (principal)
CPT/HCPCS: 95816